=== PATIENT | male | born 1985 | race Caucasian/White ===

== ENCOUNTER 2016-11-11 15:04 | Outpatient (CLI) | payer BC ==
--- NOTE | 2016-11-11 18:37 | Ultrasound Report ---
EXAM: ABDOMEN ULTRASOUND EXAM DATE: 11/11/2016 04:33 PM. CLINICAL HISTORY: EPIGASTRIC DISCOMFORT. COMPARISON: None. TECHNIQUE: Real-time scanning was performed with static images obtained. FINDINGS: Liver: Normal in size and echotexture. 13.2 cm. Main portal vein flow: Hepatopetal. Gallbladder: No stones are seen. A few nonmobile non-shadowing echogenic filling defects are seen wit hin the gallbladder lumen adherent to the gallbladder wall. These are compatible with tiny polyps whi ch measure up to about 4 mm. No gallbladder wall thickening or sonographic Olmos's sign. Biliary System: Common bile duct measures 3.8 mm. No intrahepatic or extrahepatic ductal dilatation. Pancreas: Visualized portion is unremarkable. Kidneys: Right: 10.5 cm longitudinally. There is a 7 mm nonobstructing lower pole stone. No hydronephrosis. Left: 10.8 cm longitudinally. Normal. No contour-deforming mass, stones, or hydronephrosis. Spleen: 10 x 4.3 x 5.0 cm. Normal in size and echotexture. Aorta and Inferior Vena Cava: Unremarkable. IMPRESSION: 1. Small incidental gallbladder polyps. 2. 7 mm nonobstructing right lower pole renal stone. 3. No etiology detected for epigastric discomfort. [facility] Referring Provider Line: [phone] SITE ID: [id number]
== END 2016-11-11 15:05 | disposition home or self-care (01) ==
LOC: DI 15:04
PROVIDERS: ATTEND Internal Medicine
DX: R10.13 Epigastric pain (principal); K82.4 Cholesterolosis of gallbladder; N20.0 Calculus of kidney
CPT/HCPCS: 76700